=== PATIENT | male | born 1995 | race Hispanic/Latino ===

== ENCOUNTER 2022-06-16 20:09 | Emergency (ER) | payer OTHER, SELFPAY ==
[2022-06-16 20:09] VITALS: BP 210/121; PULSE 89; RESP 19; TEMP 36.6; O2SAT 100; BMI 36.3
--- NOTE | 2022-06-16 20:29 | EKG12_ITS ---
Test Reason : DYSRHYTHMIA Blood Pressure : / mmHG Vent. Rate : 087 BPM Atrial Rate : 087 BPM P-R Int : 142 ms QRS Dur : 092 ms QT Int : 370 ms P-R-T Axes : 025 088 024 degrees QTc Int : 445 ms Normal sinus rhythm Normal ECG Confirmed by ROBERT STOVER, SIERRA ([id number]), editor managing director MARLEY PROCTOR ([id number]) on 06/17/2022 12:42:37 PM Referred By: SHEA Confirmed By:SIERRA JONES MD
--- NOTE | 2022-06-16 20:31 | EX.ED.DYSGE1 ---
HPI History of Present Illness Chief Complaint: Hypertension Narrative Narrative: 26-year-old male presenting with elevated blood pressures. He states he has been told throughout the years that his blood pressures are little bit high. He states that this is usually at an urgent care or something this nature. Last week he noticed blood pressures were elevated. He is noted that he is having headaches, dizziness, nausea. He states when he stands he starts to see floaters. Symptoms just sit down. His blood pressures were 180s and 190s systolic at home today. He has had a very vague chest pressure all day. He states he noticed that it was radiating a little bit down his left arm. He states he feels a little bit short of breath but also states he has a history of asthma. He does not feel as if he is wheezing. [facility] Medical History Asthma Home Medications amlodipine 10 mg tablet 10 mg PO DAILY #30 tabs 06/16/22 [Rx Last Taken Unknown] Allergy/AdvReac Type Severity Reaction Status Date / Time No Known Allergies Allergy Verified 06/16/22 20:11 Social History Smoking Status: Current every day smoker tobacco type: e-cigarettes ROS ROS ED Constitutional Constitutional ED: Denies chills or fever(s) Eyes Eyes: Reports blurry vision bilateral and other Details: Seeing floaters ENT ENT ED: Denies rhinorrhea or sore throat Cardiovascular Cardiovascular: Reports chest pain; Denies palpitations Respiratory/Chest Respiratory/Chest: Reports dyspnea; Denies cough Gastrointestinal Gastrointestinal: Reports nausea; Denies abdominal pain Genitourinary Genitourinary ED: Denies dysuria or hematuria Musculoskeletal Musculoskeletal: Denies arthralgias or back pain Integumentary Denies abscess or Abrasions Neurologic Neurologic: Reports headache(s); Denies paresthesias Psychiatric Psychiatric: Denies anxiety EXAM Physical Exam Const Vital Signs: 06/16/22 20:09 06/16/22 20:18 06/16/22 20:52 Temperature 97.8 F Temperature Source Temporal Pulse Rate 89 Respiratory Rate 19 H Respiratory Effort Normal Non-Labored Respiratory Pattern Normal Blood Pressure 210/121 H Blood Pressure Mean 150 Pulse Ox 100 Oxygen Delivery Method Room Air Room Air 06/16/22 22:09 Temperature Temperature Source Pulse Rate 88 Respiratory Rate 11 L Respiratory Effort Respiratory Pattern Blood Pressure 162/97 H Blood Pressure Mean 118 Pulse Ox 98 Oxygen Delivery Method Room Air Positive well nourished General Appearance ED: NAD YESENIA Reports moist mucous membranes Eyes PERRL and EOMs intact bilaterally Resp normal respiratory effort and clear to auscultation bilaterally Auscultation: Negative for rales, rhonchi or wheezes Cardio regular rate and regular rhythm Neuro oriented x3 and CN's II-XII intact bilaterally Neuro Narrative: No focal neurologic deficits or lateralizing signs or symptoms Sensorium / Orientation: alert Motor Exam: strength 5/5 throughout Psych mental status grossly normal Skin no rashes or lesions noted MDM MDM MDM Narrative Medical decision making narrative: Patient presenting with hypertension. His blood pressures been elevated for some time but over the last week its been higher. He is experiencing headaches, floaters in his visual estes, a little bit of lightheadedness. Patient states he had a low-grade chest pain all day long. 1. Patient most likely has symptoms due to hypertension. But need lab work to assess for end organ damage. IV line was established. Patient was given hydralazine 10 mg. CBC to assess white blood cell count, hemoglobin, platelets, differential. BMP to assess renal function, electrolytes.. High-sensitivity troponin as well. CT brain was obtained due to headaches, dizziness, nausea. CBC and BMP within normal limits. High-sensitivity troponin is 34. Since has been there all day long I do not believe he needs a delta troponin. Patient is PERC negative. I have low suspicion for PE. He was given 10 of hydralazine and his blood pressure now is 162/97 I feel this is sufficient blood pressure drop tonight. Patient given 10 mg of amlodipine. He will be given a prescription of this for home. Follow-up with Dr. Steward was given. Patient to keep a blood pressure diary. Return precautions discussed. Impression: 1. Hypertension new onset 2. Headaches 3. Lightheadedness 4. Chest pain Lab Data Labs: Laboratory Results - last 24 hr 06/16/22 06/16/22 20:43 20:43 WBC 8.6 RBC 4.97 Hgb 14.9 Hct 45.9 MCV 92.4 MCH 30.0 MCHC 32.5 RDW Std Deviation 41.9 RDW Coeff of Mabel 12.4 Plt Count 326 MPV 8.9 Immature Gran % (Auto) 0.200 Neut % (Auto) 58.1 Lymph % (Auto) 30.2 Hettinger % (Auto) 7.0 Eos % (Auto) 3.5 Baso % (Auto) 1.0 Absolute Neuts (auto) 5.0 Absolute Lymphs (auto) 2.59 Nucleated RBC % 0 Sodium 141 Potassium 3.7 Chloride 108 H Carbon Dioxide 25.0 Anion Gap 8 BUN 11 Creatinine 0.99 Estim Creat Clear Calc 121.93 Est GFR (MDRD) Af Amer 115 Est GFR (MDRD) Non-Af 95 BUN/Creatinine Ratio 11.1 Glucose 115 H Calcium 9.0 Troponin I High Sens 34 Radiography Diagnostic Testing: Clinical Impression(s) from Imaging Studies Brain CT 06/16/22 20:33 IMPRESSION: Negative head/brain CT without intravenous contrast. Electronically Signed: Brendon Pastrana MD at 21:24 EDT , Chest X-Ray 06/16/22 21:02 IMPRESSION: No radiographic evidence of acute cardiopulmonary disease. Electronically Signed: Brendon Pastrana MD at 21:25 EDT , Discharge Plan Triage Chief Complaint: Hypertension Other Complaint: Hyperglycemia ED Provider: Rm Terry Dx/Rx/DC Orders Instructions: ED Hypertension New Begin Treatment Prescriptions: New amlodipine 10 mg tablet 10 mg PO DAILY Qty: 30 0RF Primary Care Provider: Care Physician,No Primary Referrals: Cb Steward MD [Med Staff - Fixed Route Operator] - As soon as possible Care Physician,No Primary [Primary Care Provider] - Disposition Disposition: Home, Self Care
--- NOTE | 2022-06-16 20:33 | CT_ITS ---
EXAM: CT HEAD WITHOUT INTRAVENOUS CONTRAST CLINICAL INDICATION: headache/hypertension TECHNIQUE: Multiple axial images were obtained of the head without intravenous contrast. This CT exam was performed using one or more of the following dose reduction techniques: automated exposure control, adjustment of the mA and/or kV according to patient size, and/or use of iterative reconstruction technique. This report was created using [employer] report generation technology. COMPARISON: None. FINDINGS: BRAIN AND EXTRA-AXIAL SPACES: Unremarkable. No intra- or extra-axial hemorrhage. No evidence of acute infarct. No intracranial mass or mass effect. There is preservation of the adair/white matter interface. Posterior fossa structures are unremarkable. Ventricles are appropriate for age. No hydrocephalus. Basal cisterns are patent. BONES/JOINTS: Unremarkable. No discrete lytic or blastic abnormalities. SINUSES: Unremarkable as visualized. Clear. MASTOID AIR CELLS: Unremarkable. Clear. ORBITS: Visualized globes, extraocular muscles, optic nerves and retrobulbar fat appear unremarkable. CT/Brain/Head without Contrast IMPRESSION: Negative head/brain CT without intravenous contrast. Electronically Signed: Brendon Pastrana MD at 21:24 EDT ,
[2022-06-16] MEDS: hydrALAZINE 20 MG/ML Vial 10 MG IV (20:40)
[2022-06-16 20:55] LABS: Absolute Lymphocyte Count 2.59 X10^3/uL (0.83-4.51); Basophil# 0.09 X10^3/uL; Eosinophils% 3.5 % (0-5); Hematocrit 45.9 % (40-54); Hemoglobin 14.9 g/dL (13.0-16.5); Lymphocyte # 2.59 X10^3/ul (0.83-4.51); Lymphocyte % 30.2 % (19-41); Mean Corp Hgb Conc 32.5 g/dL (32-36); Mean Corpuscular Volume 92.4 fL (80-94); Mean Platelet Vol. 8.9 fl (6.2-12.0); NRBC Flagged by Analyzer 0 % (0-5); Neutrophil # 4.98 X10^3/uL (2.7-7.7); Neutrophil % 58.1 % (47-70); Platelet Count 326 K/mm3 (150-450); RBC Distribution Width CV 12.4 % (11.6-14.6); RBC Distribution Width SD 41.9 fl (35.1-43.9); Red Blood Count 4.97 M/mm3 (4.6-6.2); White Blood Count 8.6 K/mm3 (4.4-11.0)
--- NOTE | 2022-06-16 21:02 | RAD_ITS ---
EXAM: XR CHEST, 1 VIEW CLINICAL INDICATION: chest pain TECHNIQUE: Frontal view of the chest. This report was created using [employer] report generation technology. COMPARISON: None. FINDINGS: LUNGS AND PLEURAL SPACES: Unremarkable. No consolidation or edema. No pneumothorax. No effusion. HEART: Unremarkable. Cardiac silhouette not enlarged. MEDIASTINUM: Central airways and mediastinal contour are unremarkable. BONES/JOINTS: Unremarkable. SOFT TISSUES: Unremarkable. RAD/Chest 1 View (Portable) IMPRESSION: No radiographic evidence of acute cardiopulmonary disease. Electronically Signed: Brendon Pastrana MD at 21:25 EDT ,
[2022-06-16 21:11] LABS: Anion Gap 8 (5-15); BUN 11 mg/dL (7-18); BUN/Creat Ratio 11.1 RATIO (10-20); Chloride 108 mmol/L (98-107); Creatinine, Serum 0.99 mg/dL (0.70-1.30); EST Glomerular Filtration Rate 95 mL/min (>60); Est Glom Filt Rate - Afr Amer 115 mL/min (>60); Estimated Creatinine Clearance 121.93 ml/min; Glucose 115 mg/dL (74-106); Potassium 3.7 mmol/L (3.5-5.1); Sodium Level 141 mmol/L (136-145); Troponin-I HS 34 pg/mL (3.0-78.0)
[2022-06-16 22:09] VITALS: BP 162/97; PULSE 88; RESP 11; O2SAT 98
[2022-06-16 22:56] VITALS: BP 164/94; PULSE 81; RESP 15; O2SAT 98
[2022-06-16] MEDS: amLODIPine 10 MG Tablet PO (22:57)
== END 2022-06-16 23:01 | disposition home or self-care (01) ==
PROVIDERS: Emergency Provider Student in an Organized Health Care Education/Training Program; Visit Provider Student in an Organized Health Care Education/Training Program
DX: I10 Essential (primary) hypertension (principal); R51.9 Headache, unspecified; R42 Dizziness and giddiness; R07.9 Chest pain, unspecified; F17.290 Nicotine dependence, other tobacco product, uncomplicated
CPT/HCPCS: 70450; 71045; 80048; 84484; 85025; 93005; 96374; 99285; A4216

== ENCOUNTER → 2022-08-15 | Outpatient (CLI) | payer OTHER, SELFPAY ==
[2022-08-15 11:13] LABS: Bacteria 0 SEEN /hpf (None Seen); Mucous, Urine 0 SEEN /hpf (<or=2+); Red Blood Cells-Urine 0 SEEN /hpf (0-5); Squamous Epithelial Cells - UA 0 SEEN /hpf (0-5); White Blood Cells 0 SEEN /hpf (0-5)
[2022-08-15 13:06] LABS: Cholesterol 176 mg/dL (200); Color, Urine Yellow (Yellow); Glucose, Dipstick Normal (Normal); High Density Lipoprotein 65 mg/dL; Ketone-Dipstick Negative (Negative); Leukocyte Esterase-Dipstick Negative /ul (Negative); Nitrite-Dipstick Negative (Negative); Occult Blood-Urine Negative /ul (Negative); Protein-Dipstick Negative (Negative); Specific Gravity, Urine 1.005 (1.002-1.030); Thyroid Stim Hormone (TSH) 1.49 uIU/mL (0.358-3.74); Triglycerides 56 mg/dL; Urine Bilirubin Dipstick Negative (Negative); Urine Clarity Clear (Clear); Urine Urobilinogen Normal (Normal); Very Low Density Lipoprotein 11 mg/dL (5-40)
== END | disposition home or self-care (01) ==
LOC: MFPLAB 11:10
PROVIDERS: PCP Family Medicine; Visit Provider Family Medicine
DX: I10 Essential (primary) hypertension (principal)
CPT/HCPCS: 36415; 80061; 81001; 84443

== ENCOUNTER → 2022-08-29 | Outpatient (CLI) | payer OTHER, SELFPAY ==
--- NOTE | 2022-08-29 08:46 | US_ITS ---
INDICATION: HTN EXAMINATION: Ultrasound US Kidney(s) complete (eg, kidneys and bladder) TECHNIQUE: To scale and color doppler images were obtained of the kidneys. COMPARISON: None. FINDINGS: RIGHT KIDNEY: 12.5 x 6.3 x 6.1 cm. There is no hydronephrosis. No shadowing calculus, focal lesion or perinephric collection is demonstrated. LEFT KIDNEY: 12.6 x 7.5 x 7.1 cm. There is no hydronephrosis. No shadowing calculus, focal lesion or perinephric collection is demonstrated. URINARY BLADDER: Minimally distended for evaluation. US/Kidney and Bladder IMPRESSION: Negative renal ultrasound. Electronically Signed: David Al MD at 21:28 EDT ,
--- NOTE | 2022-08-29 08:46 | RDU_ITS ---
Reason For Study: HTN Right Renal Artery Left Renal Artery Right renal artery ostium Left renal artery ostium 128.4/48.0 165.9/49.6 RSV/EDV. PSV/EDV. Right renal artery proximal Left renal artery proximal PSV/EDV 150.6/56.2 PSV/EDV. 157.6/64.5 . Right renal artery mid 148.4/34.2 Left renal artery mid 157.6/46.2 PSV/EDV. PSV/EDV . Right renal artery distal Left renal artery distal 149.0/52.2 149.0/41.3 PSV/EDV. PSV/EDV. Right Renal Parenchyma Left Renal Parenchyma Upper Pole Medula 49.9/17.9 Left upper pole medulla 55.5/20.4 PSV/EDV. PSV/EDV . Right upper pole medulla EDR .36 . Left upper pole medulla EDR .37 . Right upper pole medulla R.I. .64 . Left upper pole medulla R.I. .63 . Upper Jose [place] Cortx 27.9/10.6 PSV/EDV. UP Cortex 22.5/9.7 PSV/EDV. Right upper pole cortex EDR .38 . Left upper pole cortex EDR .43 . Right upper pole cortex R.I. .62 . Left upper pole cortex R.I. .57 . Right lower Pole medulla 43.5/15.2 Left lower Pole medulla 33.4/11.5 PSV/EDV . PSV/EDV . Right lower pole medulla EDR .35 . Left lower pole medulla EDR .34 . Right lower pole medulla R.I. .65 . Left lower pole medulla R.I. .66 . Lower Pole Cortex 30.7/10.6 Lower Pole Cortx 22.5/11.5 PSV/EDV. PSV/EDV. Left lower pole cortex EDR .51 . Right lower pole cortex EDR .35 . Left lower pole cortex R.I. .49 . Right lower pole cortex R.I. .65 . Left Renal Hilar Right Renal Hilar LT Hilar avg 75.4/26.1 PSV/EDV . Right Hilar avg 53.5/15.2 PSV/EDV. Left hilar acceleration time 40 Right hilar acceleration time 40 m/sec. m/sec. Left Renal Dimensions Right Renal Dimensions Left kidney size 12.56 cm . Right kidney size 12.02 cm . Left cortical dimension 1.98 cm . Right cortical dimension 1.64 cm . Aorta Proximal abdominal aorta 1.59 x 1.83 cm . Proximal abdominal aorta peak systolic velocity is 112.5 cm/sec . Distal abdominal aorta 1.35 x 1.44 cm . Distal abdominal aorta peak systolic velocity is 107 cm/sec . Normal renal veins bilat. VL/Renal Artery Duplex Ultrasound Interpretation Summary Right renal artery patent with normal velocities and no evidence of stenosis. Left renal artery patent with normal velocities and no evidence of stenosis. Right renal vein patent Left renal vein patent Right kidney normal size Left kidney normal size No evidence of increased renovascular resistance. Ordering Physician: Cb Steward Performed By: Sumeet Chakraborty RVT
== END | disposition home or self-care (01) ==
PROVIDERS: PCP Family Medicine; Referring Provider Family Medicine; Visit Provider Family Medicine
DX: I10 Essential (primary) hypertension (principal)
CPT/HCPCS: 76770; 93975

== ENCOUNTER → 2022-12-05 | Outpatient (CLI) | payer OTHER, SELFPAY ==
[2022-12-05 16:21] LABS: Bacteria 0 SEEN /hpf (None Seen); Red Blood Cells-Urine 0 SEEN /hpf (0-5); Squamous Epithelial Cells - UA 0 SEEN /hpf (0-5)
[2022-12-05 17:41] LABS: Absolute Lymphocyte Count 2.76 X10^3/uL (0.83-4.51); Absolute Neutrophil Count 4.7 X10^3/uL (2.0-7.7); Basophil# 0.08 X10^3/uL; Basophil% 0.9 % (0-1); Eosinophil# 0.26 X10^3/uL; Eosinophils% 3.1 % (0-5); Hemoglobin 16.1 g/dL (13.0-16.5); Lymphocyte # 2.76 X10^3/ul (0.83-4.51); Lymphocyte % 32.4 % (19-41); Mean Corp Hgb Conc 32.9 g/dL (32-36); Mean Corpuscular Volume 88.1 fL (80-94); Mean Platelet Vol. 8.9 fl (6.2-12.0); Monocyte# 0.73 X10^3/uL; Monocyte% 8.6 % (0-10); NRBC Flagged by Analyzer 0 % (0-5); Neutrophil # 4.67 X10^3/uL (2.7-7.7); Neutrophil % 54.8 % (47-70); Platelet Count 387 K/mm3 (150-450); RBC Distribution Width CV 12.7 % (11.6-14.6); RBC Distribution Width SD 41.3 fl (35.1-43.9); Red Blood Count 5.56 M/mm3 (4.6-6.2); White Blood Count 8.5 K/mm3 (4.4-11.0)
[2022-12-05 17:45] LABS: Color, Urine Yellow (Yellow); Glucose, Dipstick Normal (Normal); Ketone-Dipstick Negative (Negative); Leukocyte Esterase-Dipstick 25 /ul (Negative); Nitrite-Dipstick Negative (Negative); Occult Blood-Urine Negative /ul (Negative); Protein-Dipstick 15 mg/dl (Negative); Specific Gravity, Urine 1.015 (1.002-1.030); Urine Bilirubin Dipstick Negative (Negative); Urine Clarity Clear (Clear); Urine Urobilinogen 1 mg/dl (Normal)
[2022-12-05 18:12] LABS: Mucous, Urine 3+ /hpf (<or=2+); White Blood Cells 0-5 SEEN /hpf (0-5)
[2022-12-05 18:35] LABS: ALB/GLOB Ratio 0.8 RATIO (0.9-2.4); AST(SGOT) 119 U/L (15-37); Alanine Aminotransfer ALT/SGPT 220 U/L (16-61); Albumin, Serum 3.8 g/dL (3.2-5.0); Alkaline Phosphatase 135 U/L (45-117); Anion Gap 6 (5-15); BUN 8 mg/dL (7-18); BUN/Creat Ratio 9.9 RATIO (10-20); Calcium,Total 9.4 mg/dL (8.5-10.1); Chloride 103 mmol/L (98-107); Cholesterol 187 mg/dL (200); Creatinine, Serum 0.81 mg/dL (0.70-1.30); EST Glomerular Filtration Rate 120 mL/min (>60); Est Glom Filt Rate - Afr Amer 145 mL/min (>60); Globulin 4.5 g/dL (2.2-4.2); Glucose 72 mg/dL (74-106); High Density Lipoprotein 64 mg/dL; Potassium 3.2 mmol/L (3.5-5.1); Protein, Total 8.3 g/dL (6.4-8.2); Sodium Level 138 mmol/L (136-145); Thyroid Stim Hormone (TSH) 2.17 uIU/mL (0.358-3.74); Triglycerides 80 mg/dL; Very Low Density Lipoprotein 16 mg/dL (5-40)
[2022-12-06 12:57] LABS: Hepatitis B Surface Antibody Non-Reactive; Hepatitis B Surface Antigen Non-Reactive (Nonreactive); Hepatitis C Antibody Non-Reactive (Nonreactive)
== END | disposition home or self-care (01) ==
LOC: MFPLAB 16:16
PROVIDERS: PCP Family Medicine; Visit Provider Family Medicine
DX: R79.89 Other specified abnormal findings of blood chemistry (principal); I10 Essential (primary) hypertension
CPT/HCPCS: 36415; 80053; 80061; 81001; 84443; 85025; 86706; 86803; 87340

== ENCOUNTER → 2023-05-23 | Outpatient (CLI) | payer SELFPAY ==
[2023-05-23 18:11] LABS: ALB/GLOB Ratio 0.9 RATIO (0.9-2.4); AST(SGOT) 115 U/L (15-37); Alanine Aminotransfer ALT/SGPT 171 U/L (16-61); Albumin, Serum 3.6 g/dL (3.2-5.0); Alkaline Phosphatase 118 U/L (45-117); Anion Gap 8 (5-15); BUN 12 mg/dL (7-18); BUN/Creat Ratio 12.5 RATIO (10-20); Calcium,Total 9.4 mg/dL (8.5-10.1); Chloride 105 mmol/L (98-107); Creatinine, Serum 0.96 mg/dL (0.70-1.30); EST Glomerular Filtration Rate 98 mL/min (>60); Est Glom Filt Rate - Afr Amer 118 mL/min (>60); Globulin 4.2 g/dL (2.2-4.2); Glucose 121 mg/dL (74-106); Potassium 3.3 mmol/L (3.5-5.1); Protein, Total 7.8 g/dL (6.4-8.2); Sodium Level 138 mmol/L (136-145)
--- OUTSIDE RECORDS SUMMARY | 2023-05-23 18:28 | XMS RPT_ITS | CCD ---
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 Role Phone PHYSICIAN, NONE Primary Care Unavailable RAMIN SHEPARD Attending Unavailable [facility] Referring Unavai gio PHYSICIAN, NONE Primary Care Unavailable ALVINA PADILLA Attending Unavailable [facility] Referring Unavai lable BLAKE GUTIÉRREZ Attending Unavailable PHYSICIAN, NONE Primary Care Unavailable Unavailable Primary Care Provider Unavailabl e Unavailable Primary Care Provider Unavailabl e Unavailable Primary Care Provider Unavailabl e MARICHUY ALMANZA Attending Unavailable Medications Current Medications Medication Drug Class(es) Dates Sig (Normalized) Sig (Original) ketotifen 0.25 mg/ml ophthalmic solution (1 source) Histamine-1 Receptor Inhibitor Start: 1 End: 1 take 1 drop(s) into the eye(s) twice daily ketotifen (ZADITOR) 0.025 % ophthalmic solution Place 1 drop into both eyes 2 times daily for 10 days 10 mL 0 09/29/2020 10/09/2020 Active methylPREDNISolone (1 source) Corticosteroid Start: 3 End: 3 methylPREDNISolone (MEDROL, [place],) 4 mg Dose-Pack Indications: Lumbar strain, initial encounter As Instructed per package 21 tablet 0 02/12/2023 02/17/2023 Active Completed/Discontinued Medications Medication Drug Class(es) Dates Sig (Normalized) Sig (Original) cetirizine hydrochloride 10 mg oral tablet (2 sources) Histamine-1 Receptor Antagonist Start: 09-29-2020 End: 09-29-2020 cetirizine (ZYRTEC) tablet 10 mg Problems Problem Classification Problem Date Documented Date Episodic/Chronic Headache; including migraine (1 source) Headache; Translations: [Headache, unspecified headache type] Episodic Inflammation; infection of eye (except that caused by tuberculosis or sexually transmitteddisease) (1 source) Acute conjunctivitis of right eye; Translations: [Unspecified acute conjunctivitis, right eye] Episodic Nausea and vomiting (1 source) Nausea and vomiting; Translations: [Nausea with vomiting, unspecified] Episodic Other circulatory disease (1 source) Elevated blood-pressure reading without diagnosis of hypertension; Translations: [Elevated blood-pressure reading, without diagnosis of hypertension] Episodic Sprains and strains (2 sources) Low back strain; Translations: [Strain of muscle, fascia and tendon of lower back, initial encounter] Onset: 02-12-2023 02-12-2023 Episodic Results Test Name Value Interpretation Reference Range Facil ity Vital Signs Date Time Vital Sign Value Performing Clinician Facility 02-12-2023 13:06-0500 Body temperature 98.01 [degF] Marichuy Almanza MD Work Phone: [facility] 02-12-2023 13:06-0500 Body weight 78.93 kg Marichuy Almanza MD Work Phone: [facility] 02-12-2023 13:06-0500 Diastolic blood pressure 90 mm[Hg] Marichuy Almanza MD Work Phone: [facility] 02-12-2023 13:06-0500 Heart rate 94 /min Marichuy Almanza MD Work Phone: [facility] 02-12-2023 13:06-0500 Respiratory rate 18 /min Marichuy Almanza MD Work Phone: [facility] 02-12-2023 13:06-0500 SaO2% (BldA) [Mass fraction] 99 % Marichuy Almanza MD Work Phone: [facility] 02-12-2023 13:06-0500 Systolic blood pressure 145 mm[Hg] Marichuy Almanza MD Work Phone: [facility] 10-11-2021 12:38-0400 Diastolic blood pressure 98 mm[Hg] Danielle Pham PA-C Work Phone: [facility] 10-11-2021 12:38-0400 Systolic blood pressure 144 mm[Hg] Danielle Athy PA-C Work Phone: [facility] 10-11-2021 12:02-0400 Body temperature 97.7 [degF] Danielle Athy PA-C Work Phone: [facility] 10-11-2021 12:02-0400 Body weight 114.94 kg Danielle Athy PA-C Work Phone: [facility] 10-11-2021 12:02-0400 Heart rate 78 /min Danielle Athy PA-C Work Phone: [facility] 10-11-2021 12:02-0400 Respiratory rate 21 /min Danielle Athy PA-C Work Phone: [facility] 10-11-2021 12:02-0400 SaO2% (BldA) [Mass fraction] 99 % Danielle Athy PA-C Work Phone: [facility] 09-29-2020 23:18-0400 Diastolic blood pressure 83 mm[Hg] Jose Alfredo Champagne MD Work Phone: [facility] Work Phone: 09-29-2020 23:18-0400 Heart rate 79 /min Jose Alfredo Champagne MD Work Phone: [facility] Work Phone: 09-29-2020 23:18-0400 Respiratory rate 16 /min Jose Alfredo Champagne MD Work Phone: [facility] Work Phone: 09-29-2020 23:18-0400 SaO2% (BldA) [Mass fraction] 100 % Jose Alfredo Champagne MD Work Phone: [facility] Work Phone: 09-29-2020 23:18-0400 Systolic blood pressure 145 mm[Hg] Jose Alfredo Champagne MD Work Phone: [facility] Work Phone: 09-29-2020 21:54-0400 Body height 182.9 cm Jose Alfredo Champagne MD Work Phone: [facility] Work Phone: 09-29-2020 21:54-0400 Body mass index (BMI) [Ratio] 31.19 kg/m2 Jose Alfredo Champagne MD Work Phone: [facility] Work Phone: 09-29-2020 21:54-0400 Body temperature 98.4 [degF] Jose Alfredo Champagne MD Work Phone: [facility] Work Phone: 09-29-2020 21:54-0400 Body weight 104.33 kg Jose Alfredo Champagne MD Work Phone: [facility] Work Phone: Encounters Encounter Date Encounter Type Care Provider Facility Start: 02-12-2023 End: 02-12-2023 ambulatory MARICHUY ALMANZA Facility:[id number] Start: 02-12-2023 End: 02-12-2023 Office outpatient new 20 minutes Marichuy Almanza MD Work Phone: [facility] Plan of Treatment Date Care Activity Detail Author Start: 03-31-2032 Urine microalbumin profile DTaP,Tdap,Td Vaccine (4 - Td or Tdap) [facility] Start: 11-29-2022 Covid-19 Vaccine ( season) Covid-19 Vaccine ( season) [facility] Start: 11-29-2022 Influenza vaccination Influenza Vaccine (#1) [facility] Start: 03-31-2022 Depression Assessment Depression Assessment [facility] Start: 02-10-2022 COVID-19 VACCINE (3 - Booster for Pfizer series) COVID-19 VACCINE (3 - Booster for Pfizer series) [facility] Start: 11-29-2021 Influenza vaccination INFLUENZA (#1) [facility] Start: 10-11-2021 End: 10-25-2021 SARS-CoV-2 (COVID-19) RNA [Presence] in Respiratory specimen by WANG with probe detection 2019 CORONAVIRUS Microbiology Routine Headache, unspecified headache type Nausea and vomiting, unspecified vomiting type Expected: 10/11/2021, Expires: 10/25/2021 [facility] Work Phone: Payers Date Payer Category Payer Unknown [facility] [employer] [id number]-Present [phone] [address] [place] [address] O [id number] 2023 Unknown [id number] 2021 Unknown MMO MMO TPA [id number] 2021-Present [address] [place] [address] PPO [id number] 2018 Private Health Insurance [id number] 2017 Self-pay 1993 Unknown [id number] 1993 Unknown [id number] 1993 Unknown [id number] Social History Date Type Detail Facility Tobacco smoking stat [facility] Unknown if ever smoked [facility] Work Phone: Start: 1995 Sex Assigned At Not on file [facility] Work Phone: Start: 10-01-2021 End: 10-11-2021 Exposure to SARS-CoV-2 (event) Not sure [facility] Start: 10-11-2021 [facility] Start: 10-11-2021 End: 02-12-2023 Tobacco use and exposure Smokeless tobacco non-user [facility] Start: 02-12-2023 Tobacco smoking stat [facility] Never smoked tobacco [facility] Start: 02-12-2023 Alcohol intake Ex-drinker (finding) [facility] Start: 02-12-2023 History of Social function [facility] Start: 02-12-2023 Tobacco use panel [facility] Progress note 02-12-2023 Note Date & Type Note Facility 02-12-2023 Note HNO ID: [id number] Author: Marichuy Almanza MD Service: ? Author Type: Physician Type: Progress Notes Filed: 02/12/2023 2:22 PM Note Text: Marisol Gonzalez is a 27 year old male who presents with Back Pain (LOWER BACK PAIN FROM WORK INJURY ON LEFT SIDE HAPPEN YESTERDAY 2PM) The history is provided by the patient. No recovery room nurse was used. Back Pain This is a new problem. The current episode started yesterday. The problem occurs constantly. The problem has not changed since onset.The pain is associated with lifting heavy objects. The quality of the pain is described as stabbing and shooting. The pain does not radiate. The pain is at a severity of 7/10. The pain is moderate. The symptoms are aggravated by bending, twisting and certain positions. The pain is The same all the time. Pertinent negatives include no headaches, no tingling and no weakness. He has tried ice and NSAIDs for the symptoms. The treatment provided no relief. No past medical history on file. There is no problem list on file for this patient. Current Outpatient Medications Medication Sig Dispense Refill methylPREDNISolone (MEDROL, [place],) 4 mg Dose-Pack As Instructed per package 21 tablet 0 cyclobenzaprine (FLEXERIL) 10 mg tablet Take 1 tablet by mouth three times a day as needed. 30 tablet 0 No current facility-administered medications for this visit. Social History Tobacco Use Smoking status: Never Smokeless tobacco: Never Vaping Use Vaping Use: current everyday user Substances: Nicotine, Flavoring Devices: Disposable, Refillable tank, Pre-filled pod Substance Use Topics Alcohol use: Not Currently Drug use: Never Alcohol Use: Not Currently Tobacco Use: Never No family history on file. Review of Systems Musculoskeletal: Positive for back pain. Negative for joint pain, myalgias and neck pain. Neurological: Negative for dizziness, tingling, focal weakness, weakness and headaches. BP 145/90 Pulse 94 Temp (Src) 98 (Oral) Resp 18 Wt 174 lb (78.9kg) SpO2 99% Physical Exam Vitals and nursing note reviewed. Constitutional: Appearance: Normal appearance. Cardiovascular: Rate and Rhythm: Normal rate and regular rhythm. Heart sounds: Normal heart sounds. Pulmonary: Effort: Pulmonary effort is normal. Breath sounds: Normal breath sounds. Musculoskeletal: General: Tenderness (left lumbar paraspinal mm ttp) present. No swelling, deformity or signs of injury. Neurological: General: No focal deficit present. Mental Status: He is alert and oriented to person, place, and time. Cranial Nerves: No cranial nerve deficit. Sensory: No sensory deficit. Motor: No weakness. Gait: Gait normal. ASSESSMENT/PLAN: 1. Lumbar strain, initial encounter - ICD9: 847.2, ICD10: S39.012A Mechanical low back pain Follow up with [facility] if sx persistent - Bedrest for 2-3 days - Ice for localized tenderness - Warm moist heat for 20 min three times a day - Medrol dose pack - Muscle relaxant- see orders - METHYLPREDNISOLONE 4 MG TABLETS IN A DOSE PACK - CYCLOBENZAPRINE 10 MG TABLET Marichuy Almanza MD [facility] History of Present illness Narrative 02-12-2023 Marichuy Almanza MD - 02/12/2023 2:16 PM EST Note Date & Type Note Facility 02-12-2023 History of Presen t illness Narrative Marisol Gonzalez is a 27 year old male who presents with Back Pain (LOWER BACK PAIN FROM WORK INJURY ON LEFT SIDE HAPPEN YESTERDAY 2PM) The history is provided by the patient. No recovery room nurse was used. Back Pain This is a new problem. The current episode started yesterday. The problem occurs constantly. The problem has not changed since onset.The pain is associated with lifting heavy objects. The quality of the pain is described as stabbing and shooting. The pain does not radiate. The pain is at a severity of 7/10. The pain is moderate. The symptoms are aggravated by bending, twisting and certain positions. The pain is The same all the time. Pertinent negatives include no headaches, no tingling and no weakness. He has tried ice and NSAIDs for the symptoms. The treatment provided no relief. No past medical history on file. There is no problem list on file for this patient. Current Outpatient Medications Medication Sig Dispense Refill methylPREDNISolone (MEDROL, [place],) 4 mg Dose-Pack As Instructed per package 21 tablet 0 cyclobenzaprine (FLEXERIL) 10 mg tablet Take 1 tablet by mouth three times a day as needed. 30 tablet 0 No current facility-administered medications for this visit. Social History Tobacco Use Smoking status: Never Smokeless tobacco: Never Vaping Use Vaping Use: current everyday user Substances: Nicotine, Flavoring Devices: Disposable, Refillable tank, Pre-filled pod Substance Use Topics Alcohol use: Not Currently Drug use: Never Alcohol Use: Not Currently Tobacco Use: Never No family history on file. Review of Systems Musculoskeletal: Positive for back pain. Negative for joint pain, myalgias and neck pain. Neurological: Negative for dizziness, tingling, focal weakness, weakness and headaches. BP 145/90 Pulse 94 Temp (Src) 98 (Oral) Resp 18 Wt 174 lb (78.9kg) SpO2 99% Physical Exam Vitals and nursing note reviewed. Constitutional: Appearance: Normal appearance. Cardiovascular: Rate and Rhythm: Normal rate and regular rhythm. Heart sounds: Normal heart sounds. Pulmonary: Effort: Pulmonary effort is normal. Breath sounds: Normal breath sounds. Musculoskeletal: General: Tenderness (left lumbar paraspinal mm ttp) present. No swelling, deformity or signs of injury. Neurological: General: No focal deficit present. Mental Status: He is alert and oriented to person, place, and time. Cranial Nerves: No cranial nerve deficit. Sensory: No sensory deficit. Motor: No weakness. Gait: Gait normal. ASSESSMENT/PLAN: 1. Lumbar strain, initial encounter - ICD9: 847.2, ICD10: S39.012A Mechanical low back pain Follow up with [facility] if sx persistent - Bedrest for 2-3 days - Ice for localized tenderness - Warm moist heat for 20 min three times a day - Medrol dose pack - Muscle relaxant- see orders - METHYLPREDNISOLONE 4 MG TABLETS IN A DOSE PACK - CYCLOBENZAPRINE 10 MG TABLET Marichuy Almanza MD documented in this encounter [facility] Instructions 02-12-2023 Patient Instructions Note Date & Type Note Facility 02-12-2023 Instructions Maricuhy Almanza MD - 02/12/2023 1:22 PM EST Low Back Pain Low back pain is pain and stiffness in the small of the back. With low back pain, pain may also occur in the buttocks or legs. Simple exercises and good posture can help most cases of low back pain. In a few cases, medications, physical therapy or surgery may be needed. The spine is made up of ring-like bones called vertebrae. The vertebrae are stacked on top of each other and form a strong column that keeps the head and body standing up. Between each vertebra is a jelly-like disk that has a tough outside edge. These disks are like cushions between the vertebrae. Muscles and tissues hold vertebrae in the right place. The lower back consists of five vertebrae. These vertebrae make up the inward curve of the lower back. What causes low back pain? The most common cause of low back pain is overstretched or injured muscles that support the lower back. Muscles and connective tissues can become hurt from lifting or carrying heavy objects incorrectly. Muscles in the back can also become weak from a lack of exercise. Exercises to make the muscles in the back and abdomen strong can lessen pain. Low back pain can also be caused by: Bad posture Standing or sitting in the same place for a long time Slipped disk; a slipped disk is when a disk between vertebrae bulges past the bones and presses against a nerve. Being very overweight Osteoporosis (thinning of bone) Osteoarthritis, which is the break down of tissues or bones of the joint Fibromyalgia, which is an illness that causes achy, tender muscles; the person with fibromyalgia may also sleep poorly, have headaches, and often feel tired Serious illnesses such as cancer, infection, or another illness can cause low back pain, but this is rare How is low back pain treated? Many times, low back pain can be helped by exercise and keeping good posture while sitting, standing, and sleeping. You can also learn ways to protect your back when bending, lifting, and exercising. People who are overweight might lessen low back pain by losing weight. What can I do if I have low back pain? 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 While working in the kitchen, open the cabinet under the sink and rest your foot on the inside of the cabinet. Change feet every 5 to 15 minutes. Keep good posture by standing with your head up, shoulders straight, chest forward, weight balanced evenly on both feet, and hips tucked in. Sitting Make sure your chair has good lower back support. The back of the chair should be curved to give support where the small of the back meets the chair. Keep your knees a little higher than your hips by using a foot rest or stool. Don't twist at the waist while sitting. Instead, turn your whole body. Sleeping Sleep on your side with your knees bent. You can also put a pillow between your knees. Try not to sleep on your stomach. If you sleep on your back, put pillows under your knees and a small pillow under the small of your back. Lifting objects Before you lift a heavy object, get a firm footing. Bend your knees to lower yourself to the level of the object, keeping your lower back straight. Tighten your stomach muscles and lift the object using your leg muscles. Don't jerk the object up to your body. Never bend from the waist with your knees straight. If you are lifting an object from a table, slide it to the edge of the table so that you can hold it close to your body. Bend your knees so that you are close to the object. Use your legs to lift the object and come to a standing position. Avoid lifting heavy objects above waist level. Hold packages close to your body with your arms bent. References National [place] for Neurological [employer] and Stroke. Low Back Pain Fact Sheet. Accessed 07/21/2012 [place] [employer]. Low Back Pain. Accessed 07/21/2012 [place] [employer]. Back Pain Facts & Statistics. Accessed 07/21/2012 Robert SD, Karlee S, Patricia RS. Back pain made simple: an approach based on principles and evidence. [facility] Clin J Med. 2009;76:393-399 Copyright 1905-3247 [facility]. All rights reserved This information is provided by the [facility] and is not intended to replace the medical advice of your doctor or health care provider. Please consult your health care provider for advice about a specific medical condition. For additional health information, please contact the Center for Consumer Health Information at the [facility] or toll-free extension [phone]. If you prefer, you may visit [email or web address] or [email or web address]. This document was last reviewed on: 2012 index#[id number] documented in this encounter [facility] Progress note 10-11-2021 Note Date & Type Note Facility 10-11-2021 Note HNO ID: [id number] Author: Danielle Pham PA-C Service: ? Author Type: Physician Rails Developer Type: Progress Notes Filed: 10/11/2021 1:05 PM Note Text: This note was created using [employer]. Subjective Marisol Gonzalez is a 26 year old male. HPI Patient presents with a chief complaint of headache and nausea. He has a history of migraines but has not had them recently. He states he was on preventative medication when he was in high school for migraines. States that started a couple of days ago. Its been off and on. Right now he rates it at 3. No thunderclap onset, not the worst headache of his life. No weakness numbness or tingling. He did vomit 1 time this morning. He does have sensitivity to light and sound. No blurred or double vision. No injury to his head. Denies cough or congestion. He is vaccinated for COVID. Did have COVID in November 2020. Blood pressure is noted to be mildly elevated. He denies history of hypertension. He did not take any ibuprofen today for his headache. He did try Tylenol as well yesterday. Review of Systems Constitutional: Positive for fatigue. Negative for fever. HENT: Negative. Eyes: Positive for photophobia. Negative for visual disturbance. Respiratory: Negative. Cardiovascular: Negative. Gastrointestinal: Positive for nausea and vomiting. Negative for abdominal pain and diarrhea. Genitourinary: Negative. Musculoskeletal: Negative. Skin: Negative. Neurological: Positive for headaches. Negative for dizziness, tremors, seizures, facial asymmetry, speech difficulty, weakness, light-headedness and numbness. Hematological: Negative. Psychiatric/Behavioral: Negative. All other systems reviewed and are negative. No past medical history on file. Current Outpatient Medications Medication Sig Dispense Refill - ondansetron orally disintegrating (ZOFRAN ODT) 4 mg disintegrating tablet Take 1 tablet by mouth every 8 hours as needed. 12 tablet 0 No current facility-administered medications for this visit. No past surgical history on file. No family history on file. Social History Tobacco Use - Smoking status: Former Smoker - Smokeless tobacco: Never Used Substance Use Topics - Alcohol use: Not on file - Drug use: Not on file Objective BP 144/98 Pulse 78 Temp 36.5 ?C (97.7 ?F) Resp 21 Wt 114.9 kg (253 lb 6.4 oz) SpO2 99% Physical Exam Vitals reviewed. Constitutional: Appearance: Normal appearance. HENT: Head: Normocephalic and atraumatic. Right Ear: Tympanic membrane, ear canal and external ear normal. Left Ear: Tympanic membrane, ear canal and external ear normal. Nose: Nose normal. Mouth/Throat: Mouth: Mucous membranes are moist. Pharynx: Oropharynx is clear. Cardiovascular: Rate and Rhythm: Normal rate and regular rhythm. Heart sounds: Normal heart sounds. Pulmonary: Effort: Pulmonary effort is normal. Breath sounds: Normal breath sounds. Musculoskeletal: Cervical back: Neck supple. Skin: General: Skin is warm and dry. Findings: No rash. Neurological: General: No focal deficit present. Mental Status: He is alert and oriented to person, place, and time. Cranial Nerves: Cranial nerves are intact. Sensory: Sensation is intact. Motor: Motor function is intact. Coordination: Coordination is intact. Romberg sign negative. Coordination normal. Xqxbhi-Ughh-Qmkhud Test and Heel to Baxter Test normal. Gait: Gait is intact. Assessment and Plan ASSESSMENT/PLAN: 1. Headache, unspecified headache type - ICD9: 784.0, ICD10: R51.9 (primary diagnosis) No red flag symptoms here. Given Toradol injection. COVID testing pending as well. Discussed symptoms that would warrant going to the ER. Discussed other [id number] medications to take for headache. Discussed if not improving to follow-up with primary care. - 2019 CORONAVIRUS - KETOROLAC 60 MG/2 ML INTRAMUSCULAR SOLUTION 2. Nausea and vomiting, unspecified vomiting type - ICD9: 787.01, ICD10: R11.2 Zofran. - 2019 CORONAVIRUS 3. Elevated blood pressure reading without diagnosis of hypertension - ICD9: 796.2, ICD10: R03.0 Recommended having this rechecked in the next couple of weeks. Patient does not currently have a primary doctor. Encouraged him to establish. - Goal of BP <130/80 Danielle Pham PA-C [facility] History of Present illness Narrative 10-11-2021 Danielle Pham PA-C - 10/11/2021 12:59 PM EDT Note Date & Type Note Facility 10-11-2021 History of Presen t illness Narrative This note was created using [employer]. Subjective Marisol Gonzalez is a 26 year old male. HPI Patient presents with a chief complaint of headache and nausea. He has a history of migraines but has not had them recently. He states he was on preventative medication when he was in high school for migraines. States that started a couple of days ago. Its been off and on. Right now he rates it at 3. No thunderclap onset, not the worst headache of his life. No weakness numbness or tingling. He did vomit 1 time this morning. He does have sensitivity to light and sound. No blurred or double vision. No injury to his head. Denies cough or congestion. He is vaccinated for COVID. Did have COVID in November 2020. Blood pressure is noted to be mildly elevated. He denies history of hypertension. He did not take any ibuprofen today for his headache. He did try Tylenol as well yesterday. Review of Systems Constitutional: Positive for fatigue. Negative for fever. HENT: Negative. Eyes: Positive for photophobia. Negative for visual disturbance. Respiratory: Negative. Cardiovascular: Negative. Gastrointestinal: Positive for nausea and vomiting. Negative for abdominal pain and diarrhea. Genitourinary: Negative. Musculoskeletal: Negative. Skin: Negative. Neurological: Positive for headaches. Negative for dizziness, tremors, seizures, facial asymmetry, speech difficulty, weakness, light-headedness and numbness. Hematological: Negative. Psychiatric/Behavioral: Negative. All other systems reviewed and are negative. No past medical history on file. Current Outpatient Medications Medication Sig Dispense Refill ondansetron orally disintegrating (ZOFRAN ODT) 4 mg disintegrating tablet Take 1 tablet by mouth every 8 hours as needed. 12 tablet 0 No current facility-administered medications for this visit. No past surgical history on file. No family history on file. Social History Tobacco Use Smoking status: Former Smoker Smokeless tobacco: Never Used Substance Use Topics Alcohol use: Not on file Drug use: Not on file Objective BP 144/98 Pulse 78 Temp 36.5 C (97.7 F) Resp 21 Wt 114.9 kg (253 lb 6.4 oz) SpO2 99% Physical Exam Vitals reviewed. Constitutional: Appearance: Normal appearance. HENT: Head: Normocephalic and atraumatic. Right Ear: Tympanic membrane, ear canal and external ear normal. Left Ear: Tympanic membrane, ear canal and external ear normal. Nose: Nose normal. Mouth/Throat: Mouth: Mucous membranes are moist. Pharynx: Oropharynx is clear. Cardiovascular: Rate and Rhythm: Normal rate and regular rhythm. Heart sounds: Normal heart sounds. Pulmonary: Effort: Pulmonary effort is normal. Breath sounds: Normal breath sounds. Musculoskeletal: Cervical back: Neck supple. Skin: General: Skin is warm and dry. Findings: No rash. Neurological: General: No focal deficit present. Mental Status: He is alert and oriented to person, place, and time. Cranial Nerves: Cranial nerves are intact. Sensory: Sensation is intact. Motor: Motor function is intact. Coordination: Coordination is intact. Romberg sign negative. Coordination normal. Gowesi-Wasj-Ykypox Test and Heel to Baxter Test normal. Gait: Gait is intact. Assessment and Plan ASSESSMENT/PLAN: 1. Headache, unspecified headache type - ICD9: 784.0, ICD10: R51.9 (primary diagnosis) No red flag symptoms here. Given Toradol injection. COVID testing pending as well. Discussed symptoms that would warrant going to the ER. Discussed other jtjq-ara-mwgohki medications to take for headache. Discussed if not improving to follow-up with primary care. - 2019 CORONAVIRUS - KETOROLAC 60 MG/2 ML INTRAMUSCULAR SOLUTION 2. Nausea and vomiting, unspecified vomiting type - ICD9: 787.01, ICD10: R11.2 Zofran. - 2019 CORONAVIRUS 3. Elevated blood pressure reading without diagnosis of hypertension - ICD9: 796.2, ICD10: R03.0 Recommended having this rechecked in the next couple of weeks. Patient does not currently have a primary doctor. Encouraged him to establish. - Goal of BP <130/80 Danielle Pham PA-C documented in this encounter [facility] Instructions 10-11-2021 Patient Instructions Note Date & Type Note Facility 10-11-2021 Instructions Danielle Pham PA-C - 10/11/2021 12:25 PM EDT Benadryl 25-50mg every 6 hours as needed Tylenol 500-1000mg Zofran 4mg ODT Ibuprofen 600-800mg(not to be taken for 8 hours after toradol given here) Drink plenty of water caffeinated beverages may help with headache as well documented in this encounter [facility] Evaluation note Note Date & Type Note Facility documented in this encounter [facility] Work Phone: Evaluation note Note Date & Type Note Facility documented in this encounter [facility] Evaluation note Note Date & Type Note Facility documented in this encounter [facility] Hospital Discharge instructions Attachments Note Date & Type Note Facility Hospital Discharge instructions The following attachments cannot be sent through Care Everywhere.Conjunctivitis (Bur[place]ian)documented in this encounter [facility] Work Phone: Summary Purpose Family History No Family History Records FoundNo Family History Records FoundNo Family History Records Found Advance Directives No Advanced Directives Records FoundNo Advanced Directives Records FoundNo Advanced Directives Records Found Medications Administered Section Inactive Administered Medications - up to 3 most recent administrations Medication Order MAR Action Action Date Dose Rate Site keTORolac 30 mg injection (TORADOL) 30 mg, INTRAMUSCULAR, ONCE, 1 dose, On Aura 10/11/21 at 1300, Ketorolac (Toradol) is indicated for the short-term (up to 5 days) management of moderately severe acute pain. Continuation of ketorolac (Toradol) beyond 5 days increases the risk of developing serious adverse events. Please verify the duration of therapy for ketorolac (Toradol)., If ordered PRN for pain, patient/guardian may elect to receive this medication for higher pain levels INSTEAD of the opioid, if preferred: Yes Given 10/11/2021 12:38 PM EDT 30 mg Buttocks, Left Health Concerns Infection Onset Date Last Indicated Resolved Time COVID-19 Rule-Out 10/11/2021 10/11/2021 Additional Source Comments (unrecognized sect ion and content) No Status Records FoundNo Status Records FoundNo Status Records Found INFORMATION SOURCE (unrecogn ized section and content) DATE CREATED AUTHOR AUTHOR'S ORGANIZ ATION 10/18/2021 [facility] DATE CREATED AUTHOR AUTHOR'S ORGANIZ ATION 02/14/2023 [facility] Reason for Visit (unrecogniz ed section and content) Reason Comments Nausea & Vomiting x 3 days Specialty Diagnoses / Procedures Referred By Hanh t Referred To Contact Internal Medicine / [facility] Diagnoses headache, nausea Procedures NEW SAME DAY Lucia Dougherty APRN.[employer] [address] [place] [address] [facility] [address] [place] [address] Referral ID Status Reason Start Date Expiration Date V isits Requested Visits Authorized [id number] Pending Review 10/11/2021 12/10/2021 1 1 Reason Comments Back Pain LOWER BACK PAIN FROM WORK INJURY ON LEFT SIDE HAPPEN YESTERDAY 2PM Ordered Prescriptions (unrec ognized section and content) Scheduled Active and Recently Administ ered Medications (unrecognized section and content) Source Comments (unrecognize d section and content) In the event this informatio n is protected by the Federal Confidentiality of Alcohol and Drug Abuse Patient Records regulations: The Federal rules restrict any use of the information to criminally investigate or prosecute any alcohol or drug abuse patient.[facility] the event this information is protected by the Federal Confidentiality of Alcohol and Drug Abuse Patient Records regulations: The Federal rules restrict any use of the information to criminally investigate or prosecute any alcohol or drug abuse patient.[facility] FOR RECORDS PERTAINING TO PATIENTS WHO ARE OR HAVE BEEN ENROLLED IN A CHEMICAL DEPENDENCY/SUBSTANCEABUSE PROGRAM, SOME INFORMATION MAY BE OMITTED. This clinical summary was aggregated from multiple sources. Caution should be exercised in using it in the provision of clinical care. This summary normalizes information from multiple sources, and as a consequence, information in this document may materially change the coding, format and clinical context of patient data. In addition, data may be omitted in some cases. CLINICAL DECISIONS SHOULD BE BASED ON THE PRIMARY CLINICAL RECORDS. [facility]. provides no warranty or guarantee of the accuracy or completeness of information in this document.
== END | disposition home or self-care (01) ==
PROVIDERS: PCP Family Medicine; Visit Provider Family Medicine
DX: I10 Essential (primary) hypertension (principal)
CPT/HCPCS: 36415; 80053